=== PATIENT | male | born 1970 | race African-American/Black ===

== ENCOUNTER 2021-04-20 15:08 | Inpatient (IN) | payer MEDICARE, OTHER ==
[2021-04-20 16:42] LABS: #Basophils 0.1 10x3/uL (0.0-0.2); #Eosinphils 0.2 10x3/uL (0.0-0.5); #Monocytes 0.6 10x3/uL (0.0-1.1); #Neutrophils 3.3 10x3/uL (1.5-8.4); %Basophils 0.7 % (0.0-2.0); %Eosinophils 2.7 % (0.0-6.0); %Lymphocytes 41.8 % (18.0-47.0); %Monocytes 8.4 % (0.0-10.0); %Neutrophils 46.1 % (40.0-75.0); Hemoglobin 17.6 g/dL (13.5-17.5); Mean Corpuscular HGB CONC 37.1 g/dL (32.0-36.0); Mean Corpuscular Hemoglobin 30.9 pg (27.0-33.0); Mean Corpuscular Volume 83.5 fl (81.2-95.1); Mean Platelet Volume 11.1 fl (7.4-10.4); Platelet Count 195 10x3/uL (150-450); RBC Distribution Width 12.8 % (11.5-14.5); Red Blood Cell (RBC) Count 5.69 10x6/uL (4.32-5.72); White Blood Cell (WBC) Count 7.2 10x3/uL (3.5-10.5)
[2021-04-20 16:44] LABS: ALT (SGPT) 157 U/L (8-55); AST (SGOT) 350 U/L (5-34); Albumin 4.1 g/dL (3.5-5.0); Alkaline Phosphatase 64 U/L (40-110); Anion Gap 14 mmol/L (10-20); BUN (Urea Nitrogen) 12 mg/dL (8.9-20.6); Bilirubin, Total 0.8 mg/dL (0.2-1.2); Calc. Creatinine Clearance 0 mL/min (70-130); Calcium 8.7 mg/dL (7.8-10.44); Carbon Dioxide 22 mmol/L (22-29); Chloride 105 mmol/L (98-107); Globulin 3.5 g/dL (2.4-3.5); Glucose 105 mg/dL (70-105); Protein, Total 7.6 g/dL (6.0-8.3); Sodium 138 mmol/L (136-145)
[2021-04-20 17:30] LABS: CK (CPK) Greater than 40000 U/L (30-200)
[2021-04-20 19:06] LABS: Bilirubin Neg (Negative); Blood, Urine 250 (Negative); Clarity Clear (Clear); Glucose, Urine (Dipstick) Normal (Negative); Ketone, Urine Negative (Negative); Leukocyte Negative (Negative); Nitrite Negative (Negative); Protein, Urine (Dipstick) 100 mg/dl (Neg-Trace); Urobilinogen Normal mg/dL (Less than 2)
[2021-04-20 19:13] LABS: RBC/HPF 0-3 HPF (0-3); Squamous Epithelial 0-3 HPF (0-3); Transitional Epithelial 0-3 HPF (None Seen)
[2021-04-20 19:14] LABS: Bacteria/HPF Rare-Few HPF (None Seen)
[2021-04-20] MEDS ORDERED: Potassium Chloride 20 MEQ TAB ONE (19:42)
[2021-04-20 20:09] LABS: SARS-CoV-2 NAA Rapid Test DETECTED (NotDetected)
[2021-04-20] MEDS ORDERED: Ketorolac Tromethamine 30 MG/ML VIAL ONE (21:09)
[2021-04-21 01:32] VITALS: BMI 33.9
[2021-04-21] MEDS ORDERED: Acetaminophen 325 MG TAB PO PRN (03:11)
[2021-04-21] MEDS ORDERED: Calcium Carbonate 500 MG ChewTAB PO PRN (03:11)
[2021-04-21] MEDS ORDERED: Ondansetron PF 4 MG/2 ML Vial IVP PRN (03:11)
[2021-04-21] MEDS ORDERED: Senokot S 8.6-50 MG TAB PO PRN (03:11)
[2021-04-21] MEDS ORDERED: Zolpidem Tartrate 5 MG TAB PO PRN (03:11)
[2021-04-21] MEDS ORDERED: Potassium Chloride 20 MEQ TAB PO SCH (03:15)
[2021-04-21] MEDS ORDERED: hydrALAZINE 20 MG/ML VIAL SLOW IVP PRN (03:16)
[2021-04-21] MEDS: Morphine 4 MG/ML VIAL SLOW IVP PRN ×2 (03:28→23:49)
[2021-04-21] MEDS: Sodium Chloride 0.9% 1,000 ML IV SCH ×4 (03:28→20:00)
[2021-04-21] MEDS: HYDROcodone/Acetaminophen 5/325 mg Tablet PO PRN ×4 (04:38→23:36)
[2021-04-21 04:50] LABS: ALT (SGPT) 150 U/L (8-55); AST (SGOT) 310 U/L (5-34); Albumin 3.7 g/dL (3.5-5.0); Alkaline Phosphatase 59 U/L (40-110); Anion Gap 11 mmol/L (10-20); BUN (Urea Nitrogen) 8 mg/dL (8.9-20.6); Bilirubin, Total 0.9 mg/dL (0.2-1.2); Calc. Creatinine Clearance 171 mL/min (70-130); Calcium 7.8 mg/dL (7.8-10.44); Carbon Dioxide 24 mmol/L (22-29); Chloride 110 mmol/L (98-107); Globulin 3.5 g/dL (2.4-3.5); Glucose 193 mg/dL (70-105); Potassium 3.1 mmol/L (3.5-5.1); Protein, Total 7.2 g/dL (6.0-8.3); Sodium 142 mmol/L (136-145)
[2021-04-21 05:17] LABS: Hemoglobin 16.5 g/dL (13.5-17.5); Mean Corpuscular HGB CONC 36.2 g/dL (32.0-36.0); Mean Corpuscular Hemoglobin 30.4 pg (27.0-33.0); Mean Corpuscular Volume 84.1 fl (81.2-95.1); Mean Platelet Volume 11.5 fl (7.4-10.4); Platelet Count 183 10x3/uL (150-450); RBC Distribution Width 12.9 % (11.5-14.5); Red Blood Cell (RBC) Count 5.42 10x6/uL (4.32-5.72); White Blood Cell (WBC) Count 4.6 10x3/uL (3.5-10.5)
[2021-04-21 05:32] LABS: CK (CPK) Greater than 40000 U/L (30-200)
[2021-04-21 06:39] LABS: MDiff Complete? YES
[2021-04-21 06:45] LABS: Eosinophils 4 % (0-10); Lymphocytes 41 % (21-51); Monocytes 18 % (0-10); Neutrophil 37 % (42-75)
[2021-04-21 06:47] LABS: Platelet Morphology Comment Appears Adequate; RBC Morphology Normal
[2021-04-21 07:14] LABS: Amphetamine Not Detected (NotDetected); Barbiturates Screen Not Detected (NotDetected); Benzodiazepine Screen Not Detected (NotDetected); Cocaine Metabolite Screen Not Detected (NotDetected); Methadone Not Detected (NotDetected); Methamphetamine Not Detected (NotDetected); Opiate Screen Detected (NotDetected); Oxycodone Screen Not Detected (NotDetected); Phencyclidine (PCP) Not Detected (NotDetected); THC/Cannabinoid Screen Not Detected (NotDetected); Tricyclic Screen Not Detected (NotDetected)
[2021-04-21] MEDS: Hydrochlorothiazide 25 MG TAB PO SCH (08:56)
[2021-04-21] MEDS: Carvedilol 12.5 MG TAB PO SCH ×2 (08:56→16:49)
[2021-04-21] MEDS: Ascorbic Acid 500 mg Chewable Tablet PO SCH (08:56)
[2021-04-21] MEDS: Cholecalciferol 1,000 UNITS (25 MCG) TAB PO SCH (08:56)
[2021-04-21] MEDS: Zinc Gluconate 50 MG TAB PO SCH (08:56)
[2021-04-21] MEDS: Enoxaparin Sodium 40 MG/0.4 ML SYRINGE SC SCH (08:56)
[2021-04-21] MEDS: Lisinopril 20 MG TAB PO SCH (08:57)
[2021-04-21] MEDS ORDERED: Amlodipine 5 MG TAB PO SCH ×3 (09:00→12:30)
[2021-04-21] MEDS ORDERED: Lisinopril/Hydrochlorothiazide 20 mg/12.5 mg Tablet PO SCH (09:00)
[2021-04-21] MEDS ORDERED: Amlodipine 10 MG TAB PO SCH (09:30)
[2021-04-22] MEDS: Sodium Chloride 0.9% 1,000 ML IV SCH ×3 (01:06→10:09)
[2021-04-22 04:36] LABS: #Eosinphils 0.4 10x3/uL (0.0-0.5); #Monocytes 0.6 10x3/uL (0.0-1.1); #Neutrophils 2.7 10x3/uL (1.5-8.4); %Basophils 0.5 % (0.0-2.0); %Eosinophils 5.5 % (0.0-6.0); %Lymphocytes 42.7 % (18.0-47.0); %Monocytes 9.2 % (0.0-10.0); %Neutrophils 41.6 % (40.0-75.0); Mean Corpuscular HGB CONC 36.4 g/dL (32.0-36.0); Mean Corpuscular Hemoglobin 30.6 pg (27.0-33.0); Mean Corpuscular Volume 84.1 fl (81.2-95.1); Platelet Count 203 10x3/uL (150-450); RBC Distribution Width 12.7 % (11.5-14.5); Red Blood Cell (RBC) Count 5.23 10x6/uL (4.32-5.72); White Blood Cell (WBC) Count 6.4 10x3/uL (3.5-10.5)
[2021-04-22 04:56] LABS: ALT (SGPT) 204 U/L (8-55); AST (SGOT) 446 U/L (5-34); Albumin 3.6 g/dL (3.5-5.0); Alkaline Phosphatase 54 U/L (40-110); Anion Gap 12 mmol/L (10-20); BUN (Urea Nitrogen) 9 mg/dL (8.9-20.6); Bilirubin, Total 1.1 mg/dL (0.2-1.2); Calc. Creatinine Clearance 177 mL/min (70-130); Calcium 8.1 mg/dL (7.8-10.44); Carbon Dioxide 25 mmol/L (22-29); Chloride 108 mmol/L (98-107); Globulin 3.3 g/dL (2.4-3.5); Glucose 109 mg/dL (70-105); Potassium 3.5 mmol/L (3.5-5.1); Protein, Total 6.9 g/dL (6.0-8.3); Sodium 141 mmol/L (136-145)
[2021-04-22 05:31] LABS: CK (CPK) Greater than 40000 U/L (30-200)
[2021-04-22] MEDS: Enoxaparin Sodium 40 MG/0.4 ML SYRINGE SC SCH (08:11)
[2021-04-22] MEDS: Ascorbic Acid 500 mg Chewable Tablet PO SCH (08:12)
[2021-04-22] MEDS: Lisinopril 20 MG TAB PO SCH (08:12)
[2021-04-22] MEDS: Hydrochlorothiazide 25 MG TAB PO SCH (08:12)
[2021-04-22] MEDS: Zinc Gluconate 50 MG TAB PO SCH (08:12)
[2021-04-22] MEDS: Cholecalciferol 1,000 UNITS (25 MCG) TAB PO SCH (08:12)
[2021-04-22] MEDS: Carvedilol 12.5 MG TAB PO SCH ×2 (08:13→16:36)
[2021-04-22] MEDS: Amlodipine 5 MG TAB PO SCH (08:13)
[2021-04-22] MEDS: HYDROcodone/Acetaminophen 5/325 mg Tablet PO PRN ×2 (14:45→22:27)
[2021-04-22] MEDS: Sodium Bicarbonate 75 MEQ, Admixture Fee 1 EACH in Dextrose 5% in Water 500 ML IV SCH ×2 (14:47→17:56)
[2021-04-23] MEDS: Sodium Bicarbonate 75 MEQ, Admixture Fee 1 EACH in Dextrose 5% in Water 500 ML IV SCH ×8 (01:31→23:54)
[2021-04-23 05:00] LABS: #Eosinphils 0.2 10x3/uL (0.0-0.5); #Monocytes 0.7 10x3/uL (0.0-1.1); %Basophils 0.7 % (0.0-2.0); %Eosinophils 3.6 % (0.0-6.0); %Monocytes 10.7 % (0.0-10.0); %Neutrophils 49.2 % (40.0-75.0); Hemoglobin 15.9 g/dL (13.5-17.5); Mean Corpuscular HGB CONC 36.1 g/dL (32.0-36.0); Mean Corpuscular Hemoglobin 30.3 pg (27.0-33.0); Mean Platelet Volume 11.4 fl (7.4-10.4); Platelet Count 228 10x3/uL (150-450); RBC Distribution Width 12.5 % (11.5-14.5); Red Blood Cell (RBC) Count 5.25 10x6/uL (4.32-5.72); White Blood Cell (WBC) Count 6.1 10x3/uL (3.5-10.5)
[2021-04-23 05:14] LABS: ALT (SGPT) 236 U/L (8-55); AST (SGOT) 469 U/L (5-34); Albumin 3.5 g/dL (3.5-5.0); Alkaline Phosphatase 54 U/L (40-110); Anion Gap 13 mmol/L (10-20); BUN (Urea Nitrogen) 10 mg/dL (8.9-20.6); Bilirubin, Total 0.9 mg/dL (0.2-1.2); Calc. Creatinine Clearance 181 mL/min (70-130); Calcium 8.2 mg/dL (7.8-10.44); Carbon Dioxide 28 mmol/L (22-29); Chloride 102 mmol/L (98-107); Globulin 3.4 g/dL (2.4-3.5); Glucose 172 mg/dL (70-105); Potassium 3.3 mmol/L (3.5-5.1); Protein, Total 6.9 g/dL (6.0-8.3); Sodium 140 mmol/L (136-145)
[2021-04-23 05:32] LABS: CK (CPK) Greater than 40000 U/L (30-200)
[2021-04-23] MEDS ORDERED: Potassium Chloride 20 MEQ TAB PO SCH (08:00)
[2021-04-23] MEDS: Amlodipine 5 MG TAB PO SCH (08:13)
[2021-04-23] MEDS: Ascorbic Acid 500 mg Chewable Tablet PO SCH (08:13)
[2021-04-23] MEDS: Zinc Gluconate 50 MG TAB PO SCH (08:14)
[2021-04-23] MEDS: Enoxaparin Sodium 40 MG/0.4 ML SYRINGE SC SCH (08:14)
[2021-04-23] MEDS: Cholecalciferol 1,000 UNITS (25 MCG) TAB PO SCH (08:14)
[2021-04-23] MEDS: Hydrochlorothiazide 25 MG TAB PO SCH (08:15)
[2021-04-23] MEDS: Lisinopril 20 MG TAB PO SCH (08:16)
[2021-04-23] MEDS: Carvedilol 12.5 MG TAB PO SCH ×2 (08:16→17:57)
[2021-04-23] MEDS: HYDROcodone/Acetaminophen 5/325 mg Tablet PO PRN ×2 (09:21→18:12)
[2021-04-23] MEDS ORDERED: Metoprolol Tartrate 25 MG TAB PO SCH (09:45)
[2021-04-24] MEDS: Metoprolol Tartrate 25 MG TAB PO SCH ×3 (00:51→20:55)
[2021-04-24] MEDS: Sodium Bicarbonate 75 MEQ, Admixture Fee 1 EACH in Dextrose 5% in Water 500 ML IV SCH ×6 (03:34→20:59)
[2021-04-24 05:02] LABS: Anion Gap 14 mmol/L (10-20); BUN (Urea Nitrogen) 11 mg/dL (8.9-20.6); Calc. Creatinine Clearance 181 mL/min (70-130); Calcium 8.5 mg/dL (7.8-10.44); Carbon Dioxide 31 mmol/L (22-29); Chloride 97 mmol/L (98-107); Glucose 153 mg/dL (70-105); Potassium 3.3 mmol/L (3.5-5.1); Sodium 139 mmol/L (136-145)
[2021-04-24 05:36] LABS: CK (CPK) Greater than 40000 U/L (30-200)
[2021-04-24] MEDS ORDERED: Potassium Chloride 20 MEQ TAB PO SCH (09:00)
[2021-04-24] MEDS: Carvedilol 12.5 MG TAB PO SCH ×2 (10:11→18:04)
[2021-04-24] MEDS: Amlodipine 5 MG TAB PO SCH (10:12)
[2021-04-24] MEDS: Ascorbic Acid 500 mg Chewable Tablet PO SCH (10:12)
[2021-04-24] MEDS: Cholecalciferol 1,000 UNITS (25 MCG) TAB PO SCH (10:13)
[2021-04-24] MEDS: Enoxaparin Sodium 40 MG/0.4 ML SYRINGE SC SCH (10:13)
[2021-04-24] MEDS: Hydrochlorothiazide 25 MG TAB PO SCH (10:13)
[2021-04-24] MEDS: Lisinopril 20 MG TAB PO SCH (10:14)
[2021-04-24] MEDS: HYDROcodone/Acetaminophen 5/325 mg Tablet PO PRN ×3 (10:29→21:09)
[2021-04-24] MEDS: Zinc Gluconate 50 MG TAB PO SCH (10:31)
[2021-04-25] MEDS: Sodium Bicarbonate 75 MEQ, Admixture Fee 1 EACH in Dextrose 5% in Water 500 ML IV SCH ×7 (00:27→22:15)
[2021-04-25 04:39] LABS: Anion Gap 12 mmol/L (10-20); BUN (Urea Nitrogen) 10 mg/dL (8.9-20.6); Calc. Creatinine Clearance 186 mL/min (70-130); Calcium 8.6 mg/dL (7.8-10.44); Carbon Dioxide 31 mmol/L (22-29); Chloride 98 mmol/L (98-107); Glucose 206 mg/dL (70-105); Potassium 3.6 mmol/L (3.5-5.1); Sodium 137 mmol/L (136-145)
[2021-04-25] MEDS: Amlodipine 10 MG TAB PO SCH (09:04)
[2021-04-25] MEDS: Enoxaparin Sodium 40 MG/0.4 ML SYRINGE SC SCH (09:04)
[2021-04-25] MEDS: Hydrochlorothiazide 25 MG TAB PO SCH (09:04)
[2021-04-25] MEDS: Cholecalciferol 1,000 UNITS (25 MCG) TAB PO SCH (09:04)
[2021-04-25] MEDS: Carvedilol 25 MG TAB PO SCH ×2 (09:04→17:44)
[2021-04-25] MEDS: HYDROcodone/Acetaminophen 5/325 mg Tablet PO PRN (09:05)
[2021-04-25] MEDS: Lisinopril 20 MG TAB PO SCH (09:05)
[2021-04-26] MEDS: Sodium Bicarbonate 75 MEQ, Admixture Fee 1 EACH in Dextrose 5% in Water 500 ML IV SCH ×5 (01:18→09:04)
[2021-04-26 04:43] LABS: Anion Gap 12 mmol/L (10-20); BUN (Urea Nitrogen) 14 mg/dL (8.9-20.6); Calc. Creatinine Clearance 157 mL/min (70-130); Carbon Dioxide 33 mmol/L (22-29); Chloride 94 mmol/L (98-107); Glucose 265 mg/dL (70-105); Potassium 3.6 mmol/L (3.5-5.1); Sodium 135 mmol/L (136-145)
[2021-04-26 04:44] LABS: ALT (SGPT) 354 U/L (8-55); AST (SGOT) 433 U/L (5-34); Albumin 3.3 g/dL (3.5-5.0); Alkaline Phosphatase 61 U/L (40-110); Bilirubin, Direct 0.2 mg/dL (0.1-0.3); Bilirubin, Total 0.6 mg/dL (0.2-1.2); Protein, Total 6.6 g/dL (6.0-8.3)
[2021-04-26 05:16] LABS: CK (CPK) Greater than 40000 U/L (30-200)
[2021-04-26] MEDS: Amlodipine 10 MG TAB PO SCH (08:42)
[2021-04-26] MEDS: Cholecalciferol 1,000 UNITS (25 MCG) TAB PO SCH (08:42)
[2021-04-26] MEDS: Carvedilol 25 MG TAB PO SCH ×2 (08:42→17:22)
[2021-04-26] MEDS: Hydrochlorothiazide 25 MG TAB PO SCH (08:43)
[2021-04-26] MEDS: Enoxaparin Sodium 40 MG/0.4 ML SYRINGE SC SCH (08:44)
[2021-04-26] MEDS: Lisinopril 20 MG TAB PO SCH (08:45)
[2021-04-26] MEDS ORDERED: Dextrose 50% Abboject 50 ML SYRINGE SLOW IVP PRN (11:39)
[2021-04-26] MEDS ORDERED: Dextrose 5% in Water 1,000 ML IV PRN (11:39)
[2021-04-26] MEDS ORDERED: Lantus 1000 UNITS/10 ML VIAL SC SCH (11:45)
[2021-04-26] MEDS: HumaLOG 300 UNITS/3 ML VIAL SC PRN ×2 (12:33→23:20)
[2021-04-26 13:28] LABS: Hemoglobin A1c 6.4 % (4.0-6.0)
[2021-04-26] MEDS: Sodium Bicarbonate 75 MEQ, Admixture Fee 1 EACH in Sodium Chloride 0.45% 1,000 ML IV SCH ×2 (14:00→21:35)
[2021-04-27] MEDS: Sodium Bicarbonate 75 MEQ, Admixture Fee 1 EACH in Sodium Chloride 0.45% 1,000 ML IV SCH ×3 (03:45→19:00)
[2021-04-27] MEDS: HumaLOG 300 UNITS/3 ML VIAL SC PRN ×4 (05:00→22:02)
[2021-04-27 06:58] LABS: Anion Gap 13 mmol/L (10-20); BUN (Urea Nitrogen) 14 mg/dL (8.9-20.6); Calc. Creatinine Clearance 189 mL/min (70-130); Calcium 9.1 mg/dL (7.8-10.44); Carbon Dioxide 26 mmol/L (22-29); Chloride 104 mmol/L (98-107); Glucose 152 mg/dL (70-105); Sodium 139 mmol/L (136-145)
[2021-04-27 07:16] LABS: CK (CPK) 37428 U/L (30-200)
[2021-04-27] MEDS: Lisinopril 20 MG TAB PO SCH (09:42)
[2021-04-27] MEDS: Carvedilol 25 MG TAB PO SCH ×2 (09:42→18:15)
[2021-04-27] MEDS: Enoxaparin Sodium 40 MG/0.4 ML SYRINGE SC SCH (09:42)
[2021-04-27] MEDS: Hydrochlorothiazide 25 MG TAB PO SCH (09:42)
[2021-04-27] MEDS: Amlodipine 10 MG TAB PO SCH (09:43)
[2021-04-27] MEDS: Cholecalciferol 1,000 UNITS (25 MCG) TAB PO SCH (09:43)
[2021-04-28] MEDS: Sodium Bicarbonate 75 MEQ, Admixture Fee 1 EACH in Sodium Chloride 0.45% 1,000 ML IV SCH ×5 (00:05→23:54)
[2021-04-28] MEDS: HumaLOG 300 UNITS/3 ML VIAL SC PRN ×3 (05:47→20:08)
[2021-04-28 06:13] LABS: Anion Gap 13 mmol/L (10-20); BUN (Urea Nitrogen) 14 mg/dL (8.9-20.6); Calc. Creatinine Clearance 194 mL/min (70-130); Calcium 8.7 mg/dL (7.8-10.44); Carbon Dioxide 25 mmol/L (22-29); Chloride 106 mmol/L (98-107); Glucose 149 mg/dL (70-105); Potassium 3.9 mmol/L (3.5-5.1); Sodium 140 mmol/L (136-145)
[2021-04-28 06:29] LABS: CK (CPK) 27700 U/L (30-200)
[2021-04-28] MEDS: Carvedilol 25 MG TAB PO SCH ×2 (08:54→17:23)
[2021-04-28] MEDS: Lisinopril 20 MG TAB PO SCH (08:54)
[2021-04-28] MEDS: Amlodipine 10 MG TAB PO SCH (08:54)
[2021-04-28] MEDS: Cholecalciferol 1,000 UNITS (25 MCG) TAB PO SCH (08:54)
[2021-04-28] MEDS: Enoxaparin Sodium 40 MG/0.4 ML SYRINGE SC SCH (08:55)
[2021-04-28] MEDS: Hydrochlorothiazide 25 MG TAB PO SCH (08:55)
[2021-04-29] MEDS: Sodium Bicarbonate 75 MEQ, Admixture Fee 1 EACH in Sodium Chloride 0.45% 1,000 ML IV SCH ×2 (05:21→10:57)
[2021-04-29 06:04] LABS: #Basophils 0.1 10x3/uL (0.0-0.2); #Eosinphils 0.2 10x3/uL (0.0-0.5); #Monocytes 0.9 10x3/uL (0.0-1.1); #Neutrophils 4.1 10x3/uL (1.5-8.4); %Basophils 0.8 % (0.0-2.0); %Eosinophils 2.3 % (0.0-6.0); %Lymphocytes 32.4 % (18.0-47.0); %Monocytes 11.6 % (0.0-10.0); %Neutrophils 51.8 % (40.0-75.0); Mean Corpuscular HGB CONC 36.5 g/dL (32.0-36.0); Mean Corpuscular Hemoglobin 30.5 pg (27.0-33.0); Mean Corpuscular Volume 83.7 fl (81.2-95.1); Mean Platelet Volume 11.3 fl (7.4-10.4); Platelet Count 265 10x3/uL (150-450); RBC Distribution Width 12.6 % (11.5-14.5); Red Blood Cell (RBC) Count 4.91 10x6/uL (4.32-5.72); White Blood Cell (WBC) Count 7.9 10x3/uL (3.5-10.5)
[2021-04-29 06:05] LABS: Anion Gap 13 mmol/L (10-20); BUN (Urea Nitrogen) 15 mg/dL (8.9-20.6); Calc. Creatinine Clearance 202 mL/min (70-130); Calcium 8.7 mg/dL (7.8-10.44); Carbon Dioxide 25 mmol/L (22-29); Chloride 106 mmol/L (98-107); Glucose 139 mg/dL (70-105); Magnesium 1.9 mg/dL (1.6-2.6); Potassium 3.6 mmol/L (3.5-5.1); Sodium 140 mmol/L (136-145)
[2021-04-29 06:07] LABS: CRP (Inflammatory) 0.86 mg/dL (= or < 0.5); Phosphorus 4.2 mg/dL (2.3-4.7)
[2021-04-29 06:21] LABS: CK (CPK) 19104 U/L (30-200)
[2021-04-29] MEDS: Cholecalciferol 1,000 UNITS (25 MCG) TAB PO SCH (08:02)
[2021-04-29] MEDS: Lisinopril 20 MG TAB PO SCH (08:02)
[2021-04-29] MEDS: Carvedilol 25 MG TAB PO SCH ×2 (08:02→16:56)
[2021-04-29] MEDS: Amlodipine 10 MG TAB PO SCH (08:03)
[2021-04-29] MEDS: Hydrochlorothiazide 25 MG TAB PO SCH (08:03)
[2021-04-29] MEDS: Enoxaparin Sodium 40 MG/0.4 ML SYRINGE SC SCH (08:04)
[2021-04-29] MEDS: HumaLOG 300 UNITS/3 ML VIAL SC PRN (17:05)
[2021-04-29 18:32] VITALS: BP 157/94; TEMP 96.7
== END 2021-04-29 18:36 | disposition home or self-care (01) | DRG 557 ==
LOC: CSHERS 15:08 → CSHTELE 04-21 01:26
PROVIDERS: ADMIT Student in an Organized Health Care Education/Training Program; ATTEND Internal Medicine
PROC: 8E0ZXY6 Isolation (ICD-10-PCS; principal; 2021-04-21)
DX: M62.82 Rhabdomyolysis (principal); U07.1 COVID-19; R74.01 Elevation of levels of liver transaminase levels; I12.9 Hypertensive chronic kidney disease with stage 1 through stage 4 chronic kidney disease, or unspecified chronic kidney disease; N18.2 Chronic kidney disease, stage 2 (mild); R73.9 Hyperglycemia, unspecified; I16.0 Hypertensive urgency; E87.6 Hypokalemia; Z88.8 Allergy status to other drugs, medicaments and biological substances; Z87.39 Personal history of other diseases of the musculoskeletal system and connective tissue
CPT/HCPCS: 36415; 36416; 76705; 80048; 80053; 80076; 80306; 81003; 81015; 82550; 83036; 83735; 84100; 85025; 85652; 86140; 96374; J0360; J1650; J1815; J1885; J2270; J7050; J7070; U0002